=== PATIENT | male | born 1940 | race African-American/Black ===

== ENCOUNTER 2017-08-06 22:01 | Inpatient (IN) | payer BC, MEDICARE ==
[2017-08-06 22:42] LABS: #Lymphocytes 0.8 thou/uL (1.20-3.40); #Monocytes 0.2 thou/uL (0.11-0.59); #Neutrophils 4.6 thou/uL (1.40-6.50); %Basophils 0.6 % (0.0-1.0); %Eosinophils 0.5 % (0.0-10.0); %Lymphocytes 13.7 % (21.0-51.0); %Monocytes 3.6 % (0.0-10.0); %Neutrophils 81.6 % (42.0-75.0); Hemoglobin 13.3 g/dL (14.0-18.0); Mean Corpuscular HGB CONC 33.4 g/dL (32.0-36.0); Mean Corpuscular Hemoglobin 30.8 pg (27.0-31.0); Mean Platelet Volume 6.4 fL (7.4-10.4); Platelet Count 292 thou/uL (130-400); RBC Distribution Width 12.5 % (11.5-14.5); Red Blood Cell (RBC) Count 4.31 mill/uL (4.70-6.10); White Blood Cell (WBC) Count 5.7 thou/uL (4.8-10.8)
[2017-08-06 22:57] LABS: ALT (SGPT) 8 U/L (8-55); AST (SGOT) 23 U/L (5-34); Albumin 4.1 g/dL (3.4-4.8); Alkaline Phosphatase 58 U/L (40-150); Anion Gap 23 mmol/L (10-20); BUN (Urea Nitrogen) 54 mg/dL (8.4-25.7); Bilirubin, Total 0.2 mg/dL (0.2-1.2); CK (CPK) 66 U/L (30-200); Calc. Creatinine Clearance 0 mL/min (70-130); Calcium 9.8 mg/dL (7.8-10.44); Carbon Dioxide 10 mmol/L (23-31); Chloride 109 mmol/L (98-107); Estimated GFR-MDRD 39; Globulin 4.2 g/dL (2.4-3.5); Glucose 200 mg/dL (83-110); Potassium 5.4 mmol/L (3.5-5.1); Protein, Total 8.3 g/dL (5.8-8.1); Sodium 137 mmol/L (136-145)
[2017-08-06 23:01] LABS: CKMB 1.1 ng/mL (0-6.6); Troponin I Less than 0.010 ng/mL (< 0.028)
[2017-08-07 02:46] VITALS: BMI 26.7
[2017-08-07 03:10] LABS: BUN (Urea Nitrogen) 52 mg/dL (8.4-25.7); Calc. Creatinine Clearance 33 mL/min (70-130); Calcium 9.8 mg/dL (7.8-10.44); Chloride 109 mmol/L (98-107); Estimated GFR-MDRD 40; Glucose 150 mg/dL (83-110); Potassium 5.9 mmol/L (3.5-5.1); Sodium 135 mmol/L (136-145)
[2017-08-07 03:18] LABS: Carbon Dioxide Less than 8 mmol/L (23-31)
[2017-08-07] MEDS ORDERED: Sodium Chloride 0.9% 1,000 ML IV SCH ×2 (05:45→07:15)
[2017-08-07] MEDS ORDERED: Gemfibrozil 600 MG TAB PO SCH (07:30)
[2017-08-07 07:33] LABS: Anion Gap 19 mmol/L (10-20); BUN (Urea Nitrogen) 52 mg/dL (8.4-25.7); Calc. Creatinine Clearance 36 mL/min (70-130); Calcium 9.6 mg/dL (7.8-10.44); Carbon Dioxide 12 mmol/L (23-31); Chloride 109 mmol/L (98-107); Estimated GFR-MDRD 43; Glucose 120 mg/dL (83-110); Potassium 6.1 mmol/L (3.5-5.1); Sodium 134 mmol/L (136-145)
[2017-08-07 07:54] VITALS: TEMP 98.1
[2017-08-07 08:08] LABS: #Lymphocytes 0.4 thou/uL (1.20-3.40); #Monocytes 0.7 thou/uL (0.11-0.59); #Neutrophils 4.5 thou/uL (1.40-6.50); %Basophils 0.1 % (0.0-1.0); %Eosinophils 0.3 % (0.0-10.0); %Lymphocytes 6.7 % (21.0-51.0); %Neutrophils 79.9 % (42.0-75.0); Hemoglobin 12.7 g/dL (14.0-18.0); Mean Corpuscular HGB CONC 33.8 g/dL (32.0-36.0); Mean Corpuscular Hemoglobin 30.5 pg (27.0-31.0); Mean Corpuscular Volume 90.3 fl (80.0-94.0); Mean Platelet Volume 6.2 fL (7.4-10.4); Platelet Count 320 thou/uL (130-400); RBC Distribution Width 12.5 % (11.5-14.5); Red Blood Cell (RBC) Count 4.16 mill/uL (4.70-6.10); White Blood Cell (WBC) Count 5.6 thou/uL (4.8-10.8)
[2017-08-07] MEDS ORDERED: Amlodipine 10 MG TAB PO SCH (09:00)
[2017-08-07] MEDS ORDERED: Meclizine HCl 25 MG TAB PO SCH (09:00)
[2017-08-07] MEDS ORDERED: Atorvastatin Calcium 40 MG TAB PO SCH (09:00)
[2017-08-07] MEDS ORDERED: Aspirin 81 mg Enteric Coated Tablet PO SCH (09:00)
[2017-08-07] MEDS ORDERED: Levothyroxine Sodium 25 MCG TAB PO SCH (09:00)
[2017-08-07] MEDS ORDERED: Prevnar 13-Val Conj/PF 0.5 ML SYRINGE IM ONE (09:00)
[2017-08-07] MEDS ORDERED: Sodium Bicarbonate 150 MEQ in Dextrose 5% in Water 1,000 ML IV SCH (09:00)
[2017-08-07] MEDS ORDERED: Heparin 5,000 UNITS/ML VIAL SC SCH (09:00)
[2017-08-07] MEDS ORDERED: Calcium Gluc 4.6 MEQ/10 ML (100 MG/ML) SLOW IVP ONE (09:20)
[2017-08-07] MEDS ORDERED: Dextrose 50% Abboject 50 ML SYRINGE SLOW IVP PRN (09:21)
[2017-08-07] MEDS ORDERED: Insulin Regular 300 UNITS/3 ML VIAL IVP SCH (09:30)
[2017-08-07] MEDS ORDERED: EPINEPHrine 1 MG/10 ML Abboject SYRINGE ONE (11:11)
[2017-08-07] MEDS ORDERED: Calcium Chloride 1 GM/10 ML Abboject SYRINGE ONE (11:11)
[2017-08-07] MEDS ORDERED: EPINEPHrine 1 mg/ml MDV (1ml Charge) ONE (11:11)
[2017-08-07] MEDS ORDERED: Sodium Bicarb 50 MEQ/50 ML Abboject 8.4% SYRINGE ONE (11:11)
[2017-08-07] MEDS ORDERED: Rocuronium Bromide 50 MG/5 ML VIAL ONE (11:11)
--- NOTE | 2017-08-07 11:21 | CON ---
DATE OF CONSULTATION: 08/07/2017 NEPHROLOGY CONSULT REASON FOR CONSULTATION: Hyperkalemia. HISTORY OF PRESENT ILLNESS: This is a very pleasant 77-year-old gentleman who has been having diarrh ea for few days, presented to the hospital after it was noted to have a potassium of more than 6. Vidal nam was given Lasix and albuterol, but without any improvement in potassium. PAST MEDICAL HISTORY: Significant for hyperlipidemia, hypertension, CKD, TIA, history of sarcoma, hi story of unknown cancer, history of MediPort, history of abdominal tumor, history of amputation, hypo thyroidism. SOCIAL HISTORY: No alcohol or drug use. FAMILY HISTORY: Negative for ESRD. ALLERGIES: Reviewed. HOME MEDICATIONS: List reviewed. REVIEW OF SYSTEMS: A 15-point review of systems was performed and was negative except for positives noted above. GENERAL: Weakness- HEAD: Headache- NECK: No swelling or lumps. NOSE: No epistaxis or discharge. EYES: No diplopia or pain. RESPIRATORY: Dyspnea- CARDIOVASCULAR: Chest pain- GASTROINTESTINAL: Nausea- /PAN PUSHER: Hematuria- MUSCULOSKELETAL: No joint pain. NEUROPSYCHIATIC SYSTEMS: No suicidal ideation. No ideation. SKIN: Denies any rash or ulcer. CONSTITUTIONAL: No fever or chills. PHYSICAL EXAMINATION: GENERAL: Patient is awake, alert. VITAL SIGNS: Afebrile, pulse 115, breathing 16, blood pressure 115/73. HEAD/NECK: Normocephalic. Atraumatic. EYES: EOMI. No deformity. EARS: Clear. No ulcers. NOSE: Intact. No lesions. MOUTH: Clear. No discharge. THROAT: Clear. No exudate. LUNGS: Clear. No crackles. CARDIAC: S1, S2. No rub. ABDOMEN: Benign. BS+. GENITALIA/RECTUM: Crowley absent. BACK/EXTREMITIES: Edema 0+ Ulcer- NEUROLOGICAL: Alert and motor intact. SKIN: Rash- Bruise- LYMPHATICS: Edema- Ulcer- LABORATORY DATA: Show hemoglobin 12.7, potassium 6.1, bicarbonate 12. ASSESSMENT AND RECOMMENDATIONS: 1. Chronic kidney disease, most likely due to diarrhea and decreased effective arterial blood volume . Continue hydration. 2. Hyperkalemia. Start bicarbonate drip. 3. Metabolic acidosis. Start bicarbonate. If the potassium does not improve, we will consider dial ysis. No indication for dialysis at this time.
[2017-08-07 13:07] VITALS: BP 142/63
--- NOTE | 2017-08-07 13:32 | CON ---
DATE OF CONSULTATION: 08/07/2017 HISTORY OF PRESENT ILLNESS: The patient is 77-year-old male with history of metasta tic Kaposi sarcoma. He was treated yesterday with gemcitabine. He is admitted with diarrhea, dehydr ation, hyperkalemia, and elevated BUN and creatinine. The patient has been seen by Dr. Jarquin and he i s being managed appropriately. Today, he does not have any specific complaints. PHYSICAL EXAMINATION: VITAL SIGNS: Temperature 98.1, pulse 86, blood pressure 142/63. HEENT: Unremarkable. CHEST/HEART/ABDOMEN: Normal. LABORATORY DATA: CBC shows WBC of 5600, hemoglobin 12.7 and platelet count of 320. Chemistry profil e shows a potassium of 6.1, BUN 52, creatinine 1.85. ASSESSMENT AND RECOMMENDATIONS: The patient's diarrhea should be managed symptomatically. He needs to be continued on IV fluid and renal function will be monitored. He has been asked to be in the off ice next week on Friday for continuation of his weekly chemotherapy. Thanks very much for asking me to participate in this patient's care.
[2017-08-07 13:43] LABS: Anion Gap 24 mmol/L (10-20); BUN (Urea Nitrogen) 55 mg/dL (8.4-25.7); Calc. Creatinine Clearance 35 mL/min (70-130); Calcium 9.4 mg/dL (7.8-10.44); Chloride 110 mmol/L (98-107); Estimated GFR-MDRD 42; Glucose 115 mg/dL (83-110); Potassium 5.5 mmol/L (3.5-5.1); Sodium 136 mmol/L (136-145)
[2017-08-07 13:47] LABS: Carbon Dioxide 8 mmol/L (23-31)
--- NOTE | 2017-08-07 15:55 | PDOC.PN ---
- Objective Resuscitation Status: Resuscitation Status FULL:Full Resuscitation Vital Signs & Weight: Vital Signs (12 hours) Temp Pulse Resp BP Pulse Ox 08/07/17 12:55 98.1 F 86 14 142/63 H 96 08/07/17 07:52 98.1 F 79 18 123/59 L 95 08/07/17 07:25 98.1 F 79 18 95 08/07/17 04:15 97.8 F 94 21 H Result Diagrams: 08/07/17 07:06 08/07/17 16:34 Dx/Plan (1) Hyperkalemia Code(s): E87.5 - HYPERKALEMIA Status: Acute (2) Metabolic acidosis Code(s): E87.2 - ACIDOSIS Status: Acute - Plan * . plan: pt is up in bed no complains. s/p chemo for his kaposi sarcoma. Pt has only had diarrhea x1 yesterday and one today. upon reviewing his records he has had diarrhea and metabolic acidosis in the past. ? tumor lysis but his calcium is normal. will check phosphrous level. ?RTA but he does have a mild gap. Appears pt has had this metabolic acidosis.
[2017-08-07] MEDS ORDERED: Lorazepam 2 MG/ML VIAL ONE (16:09)
[2017-08-07] MEDS ORDERED: Sodium Bicarb 50 MEQ/50 ML VIAL ONE (16:18)
[2017-08-07 17:10] LABS: Anion Gap 28 mmol/L (10-20); BUN (Urea Nitrogen) 52 mg/dL (8.4-25.7); Calc. Creatinine Clearance 33 mL/min (70-130); Calcium 10.9 mg/dL (7.8-10.44); Carbon Dioxide 18 mmol/L (23-31); Chloride 102 mmol/L (98-107); Estimated GFR-MDRD 39; Glucose 265 mg/dL (83-110); Potassium 4.1 mmol/L (3.5-5.1); Sodium 144 mmol/L (136-145)
[2017-08-08] MEDS ORDERED: Levothyroxine Sodium 100 MCG TAB PO SCH (06:00)
== END 2017-08-07 16:40 | disposition expired | DRG 641 ==
LOC: ERS 22:01 → 2NO 23:25
PROVIDERS: ADMIT Internal Medicine; ATTEND Internal Medicine
PROC: 0BH17EZ Insertion of Endotracheal Airway into Trachea, Via Natural or Artificial Opening (ICD-10-PCS; principal; 2017-08-07)
PROC: 5A12012 Performance of Cardiac Output, Single, Manual (ICD-10-PCS; 2017-08-07)
DX: E87.5 Hyperkalemia (principal); N17.9 Acute kidney failure, unspecified; C46.9 Kaposi's sarcoma, unspecified; E86.0 Dehydration; E78.5 Hyperlipidemia, unspecified; Z86.73 Personal history of transient ischemic attack (TIA), and cerebral infarction without residual deficits; E03.9 Hypothyroidism, unspecified; I12.9 Hypertensive chronic kidney disease with stage 1 through stage 4 chronic kidney disease, or unspecified chronic kidney disease; E87.2 Acidosis; I46.9 Cardiac arrest, cause unspecified; N18.3 Chronic kidney disease, stage 3 (moderate)
CPT/HCPCS: 36415; 36416; 80048; 80053; 82248; 82553; 83615; 83880; 84100; 84484; 84550; 85025; 90471; 90670; 93005; 93010; A4216; G0009; J0171; J1644; J2060; J7070